=== PATIENT | male | born 1995 | race Caucasian/White ===

== ENCOUNTER 2022-01-22 12:18 | Outpatient (CLI) | payer BC, SELFPAY ==
--- NOTE | ~2022-01-22 | XR_ITS ---
XR cervical spine 4-5V DATE: 01/22/2022 12:55 INDICATION: Neck pain TECHNIQUE: Standing AP, lateral, open-mouth and swimmer's views COMPARISON: None FINDINGS: There is straightening of the cervical spine which may be due to muscle spasm. C1 and C2 ar e normally aligned and the odontoid process is intact. No fracture or dislocation or locked facet or prevertebral soft tissue swelling. There is mild loss of interspace height at C3-4, C4-5 and C5-6. IMPRESSION: Straightening of the cervical spine which may be due to muscle spasm Mild degenerative disc disease Reviewed, dictated and finalized at location B. IMPRESSION: Straightening of the cervical spine which may be due to muscle spas m Mild degenerative disc disease
== END 2022-01-22 12:19 ==
PROVIDERS: PCP Physician Assistant; Visit Provider Physician Assistant
DX: M54.12 Radiculopathy, cervical region (principal); M50.30 Other cervical disc degeneration, unspecified cervical region
CPT/HCPCS: 72050